=== PATIENT | female | born 1930 | race Caucasian/White ===

== ENCOUNTER 2019-07-09 02:32 | Emergency (ER) | payer MEDICARE, BC ==
[~2019-07-09] VITALS: Ht 160 cm; Wt 74.4 kg
[2019-07-09] MEDS ORDERED: TRAMADOL HCL 50 MG TAB PO ONE (02:45)
--- NOTE | 2019-07-09 03:51 | Diagnostic Imaging Report ---
Wrist Complete CPT Code: 82660 Indication: Fall, pain Technique: Three views right wrist obtained. Comparison: None Findings: The bones are diffusely demineralized. Comminuted fracture of the distal radius with intra-articular extension and impaction. There is mild dorsal angulation of the distal fracture fragment. The ulna is intact. No radioulnar dislocation. The carpal bones are intact and normally aligned. No evidence of fracture or dislocation of the visualized digits. There are degenerative changes throughout the hand, particularly at the first CMC joint. IMPRESSION: Distal radial fracture with impaction, intra-articular extension, and dorsal angulation of the distal fracture fragment. Signed by: Dr. Ashanti Perez MD on 07/09/2019 3:47 AM
--- NOTE | 2019-07-09 06:00 | Diagnostic Imaging Report ---
History:Fall Comparison studies:None Technique: Axial images were obtained from the skull base to the vertex. Coronal and sagittal images reconstructed from the axial data. Intravenous contrast: None Dose modulation, iterative reconstruction, and/or weight based adjustment of the mA/kV was utilized to reduce the radiation dose to as low as reasonably achievable. Findings: Scalp/skull: No abnormalities. Extra-axial spaces: No masses. No fluid collections. Brain sulci: Mildly prominent. Ventricles: Mild compensatory dilatation. No hydrocephalus. Parenchyma: Scattered hypodensities in the supratentorial white matter are small vessel ischemic changes. No masses, hemorrhage, acute or chronic cortical vascular insults. Sellar/suprasellar region: No abnormalities. Craniocervical junction: Patent foramen magnum. No Chiari one malformation. Incidental findings: Atherosclerotic calcifications in the carotid siphons . Impression: No acute abnormalities. Chronic findings: 1. Mild generalized volume loss. 2. Moderate supratentorial white matter small vessel ischemic changes. Signed by: DR Bentley Frank M.D. on 07/09/2019 5:56 AM
--- NOTE | 2019-07-09 06:04 | NUR ---
Called [facility] for transport to nursing facility, eta 25-30 min.
[2019-07-09 06:09] VITALS: BP 127/60
== END 2019-07-09 06:36 ==
LOC: ER 02:32
DX: S52.91XA Unspecified fracture of right forearm, initial encounter for closed fracture (principal); S00.83XA Contusion of other part of head, initial encounter; W01.0XXA Fall on same level from slipping, tripping and stumbling without subsequent striking against object, initial encounter; Y92.008 Other place in unspecified non-institutional (private) residence as the place of occurrence of the external cause; F03.90 Unspecified dementia, unspecified severity, without behavioral disturbance, psychotic disturbance, mood disturbance, and anxiety; I10 Essential (primary) hypertension; E78.5 Hyperlipidemia, unspecified
CPT/HCPCS: 70450; 99284